=== PATIENT | male | born 1950 | race Caucasian/White ===

== ENCOUNTER 2017-02-26 12:12 | Emergency (ER) | payer MEDICAID, MEDICARE ==
[~2017-02-26] VITALS: Ht 172.7 cm; Wt 70.0 kg
[2017-02-26 12:17] VITALS: BP 158/90
[2017-02-26] MEDS ORDERED: ONDANSETRON 2MG/ML, 2ML IVPush ONE (13:00)
[2017-02-26] MEDS ORDERED: HYDROcodone/APAP 5/325 TABLET PO ONE (13:00)
[2017-02-26] MEDS ORDERED: CEFAZOLIN PMX 1GM/50ML 50 ML IVPB ONE (13:00)
[2017-02-26] MEDS ORDERED: SODIUM CHLORIDE 0.9% 1,000ML IVBOLUS ONE (13:00)
[2017-02-26] MEDS ORDERED: SODIUM CHLORIDE FLUSH 10ML SYR IVF ONE (13:00)
[2017-02-26 13:47] LABS: BLOOD UREA NITROGEN 14 mg/dL (7-18)
[2017-02-26] MEDS ORDERED: HYDROcodone/APAP 5/325 TABLET ONE (14:12)
[2017-02-26] MEDS ORDERED: CEFAZOLIN 1,000 MG ONE (14:12)
[2017-02-26] MEDS ORDERED: CEFAZOLIN 1,000 MG IM ONE (14:30)
== END 2017-02-26 14:44 | disposition home or self-care (01) ==
LOC: ED 14:38
DX: T63.301A Toxic effect of unspecified spider venom, accidental (unintentional), initial encounter (principal); L03.116 Cellulitis of left lower limb; Y92.9 Unspecified place or not applicable
CPT/HCPCS: 36415; 80048; 82040; 83880; 85025; 85651; 87040; 93005; 93971; 96372; 99285; J0690